=== PATIENT | female | born 1995 | race American Indian/Alaskan Native ===

== ENCOUNTER 2020-05-27 20:59 | Emergency (ER) | payer SELFPAY ==
[2020-05-27 22:06] VITALS: BP 90/57
[2020-05-28] MEDS ORDERED: diphenhydrAMINE 25 MG CAP PO ONE (00:02)
[2020-05-28] MEDS ORDERED: ACETAMINOPHEN 500 MG TAB PO ONE (00:02)
--- NOTE | 2020-05-28 01:12 | Emergency Department Report ---
ED Headache HPI - General Chief Complaint: Headache Stated Complaint: HEADACHE/BODYACHES Time Seen by Provider: 05/27/20 23:38 - History of Present Illness Initial Comments: Patient is a 25-year-old female who presents for frontal headache intermittently x1 month. Patient has history of same today's headache is described as aching sharp 4/10 right frontal. There is no fevers chills no nausea vomiting no congestion. Headache is unusual location as previous headaches. Headache is relieved by rest, headache is exacerbated by activity and stress. There is no decrease in vision no dental caries no ear or throat pain. Timing/Duration: other ( month) Quality: moderate Head Injury Location: frontal (R Frontal) Recent Head Trauma: no recent headache/trauma Associated Symptoms: denies symptoms Allergies/Adverse Reactions: Allergies No Known Allergies Allergy (Unverified 05/27/20 22:06) Home Medications: Ambulatory Orders Acetaminophen/Codeine [Tylenol /Codeine # 3 tab] 1 tab PO Q6H PRN 3 Days #1 tab 05/28/20 diphenhydrAMINE [Benadryl CAP] 25 mg PO Q8HR PRN #30 capsule 05/28/20 ED Review of Systems ROS: Stated complaint: HEADACHE/BODYACHES Other details as noted in HPI Constitutional: malaise. denies: chills, fever Eyes: denies: eye pain, eye discharge, vision change ENT: denies: ear pain, throat pain, dental pain, hearing loss, epistaxis, congestion Respiratory: denies: cough, shortness of breath, wheezing Cardiovascular: denies: chest pain Endocrine: no symptoms reported Gastrointestinal: denies: abdominal pain, nausea, vomiting, diarrhea Genitourinary: denies: urgency, dysuria, frequency, hematuria, discharge Musculoskeletal: denies: back pain, joint swelling, arthralgia Skin: denies: rash, lesions Neurological: headache. denies: weakness, paresthesias, vertigo Psychiatric: denies: anxiety, depression Hematological/Lymphatic: as per HPI ED Past Medical Hx - Past Medical History Previous Medical History?: Yes Hx Asthma: Yes - Surgical History Past Surgical History?: Yes Additional Surgical History: - Social History Smoking Status: Never Smoker Substance Use Type: None - Medications Home Medications: Home Medications Medication Instructions Recorded Confirmed Last Taken Type Acetaminophen/Codeine [Tylenol 1 tab PO Q6H PRN 3 Days #1 tab 05/28/20 Unknown Rx /Codeine # 3 tab] diphenhydrAMINE [Benadryl CAP] 25 mg PO Q8HR PRN #30 capsule 05/28/20 Unknown Rx ED Physical Exam - General Limitations: No Limitations General appearance: alert, in no apparent distress - Head Head exam: Present: atraumatic, normocephalic - Eye Eye exam: Present: normal appearance, PERRL, EOMI. Absent: conjunctival injection Pupils: Present: normal accommodation - ENT ENT exam: Present: mucous membranes moist - Neck Neck exam: Present: normal inspection, full ROM. Absent: tenderness, lymphadenopathy - Expanded Neck Exam Expanded Neck exam: Present: tenderness. Absent: midline deformity, anterior neck swelling ED Course Vital Signs 05/27/20 22:01 Temperature 98.2 F Pulse Rate 107 H Respiratory 18 Rate Blood Pressure 90/57 O2 Sat by Pulse 100 Oximetry ED Medical Decision Making - Medical Decision Making Headache is improved with medications given in ED, patient will be DC'd home with same. Patient is currently alert oriented x3 amatory with steady gait with no acute distress. There has been no decrease in vision, no eye pain or swelling. pt to home in stable condition. Critical care attestation.: If time is entered above; I have spent that time in minutes in the direct care of this critically ill patient, excluding procedure time. ED Disposition Clinical Impression: Headache Qualifiers: Headache type: unspecified Headache chronicity pattern: acute headache Intractability: not intractable Qualified Code(s): R51.9 - Headache, unspecified Disposition: DC-01 TO HOME OR SELFCARE Is pt being admited?: No Does the pt Need Aspirin: No Condition: Stable Instructions: Acute Headache (ED) Prescriptions: diphenhydrAMINE [Benadryl CAP] 25 mg PO Q8HR PRN #30 capsule PRN Reason: Headache Acetaminophen/Codeine [Tylenol /Codeine # 3 tab] 1 tab PO Q6H PRN 3 Days #1 tab PRN Reason: Pain, Moderate (4-6) Referrals: SYED JORDAN MD [Primary Care Provider] - 3-5 Days Forms: Work/School Release Form(ED) Time of Disposition: 01:28
== END 2020-05-28 01:35 | disposition home or self-care (01) ==
LOC: ED 20:59
DX: R51.9 Headache, unspecified (principal); J45.909 Unspecified asthma, uncomplicated; Z98.890 Other specified postprocedural states
CPT/HCPCS: 99282